=== PATIENT | male | born 1940 | race African-American/Black ===

== ENCOUNTER 2017-06-01 00:57 | Emergency (ER) | payer OTHER, BC ==
[~2017-06-01] VITALS: Ht 167.6 cm; Wt 81.2 kg
--- NOTE | ~2017-06-01 | EKG ---
[place] [id number] [facility] [place] [employer] [address] ELECTROCARDIOGRAM REPORT Name: LORIE RINCON Room #: [facility]#: [id number] Admission: 06/01/17 Attend Phys: Discharge: 06/01/17 Date of : 40 Report #: [id number] THIS REPORT FOR: //name// [facility] ED Test Date: 2017-06-01 Test Time: 01:03:56 Pat Name: LORIE RINCON Department: Room: 170 Gender: M [employer]: MZOOK : 1940 Requested By: Florencia Orona Order Number: [id number] MD: Joaquín Valentino Measurements Intervals [employer] Rate: 65 P: 65 WV: 152 QRS: 158 QRSD: 108 T: 144 QT: 436 QTc: 454 Interpretive Statements Sinus rhythm Abnormal lateral Q waves Anterior infarct, old Abnormal T, consider ischemia, lateral leads Compared to ECG 05/04/2015 07:31:28 No significant change was found Electronically Signed On 06-01-2017 17:21:37 CDT by Joaquín Valentino [email or web address] <ELECTRONICALLY SIGNED> By: Joaquín Valentino MD, [facility] 06/01/17 1721 [id number] Joaquín Valentino MD, [facility] /EPI
[~2017-06-01 00:57] MED LIST: COUMADIN 3 MG TA3 M1 PO; LANTUS SOL100 UNIT/1 SUBQ; LIPITOR 20 MG T20 M1 PO; LISINOPRIL20 MG PO; NOVOLOG FL100 UNIT/M SC; PRINIVIL20 MG PO
[2017-06-01 01:05] VITALS: BP 149/71
[2017-06-01 01:27] LABS: ABSOLUTE NEUTROPHILS 3.6 thou/uL (1.4-8.2); BASOPHILS 1.4 % (0.0-2.0); EOSINOPHILS 5.2 % (0.0-3.0); HEMATOCRIT 39.5 % (42.0-52.0); HEMOGLOBIN 13.5 gm/dL (14.0-18.0); LYMPHOCYTES 23.1 % (24.0-44.0); MCH 30.1 pg (26.0-34.0); MCHC 34.1 g/dL (28.0-37.0); MCV 88.3 fL (80.0-100.0); MONOCYTES 10.1 % (1.0-8.0); PLATELET COUNT 127 thou/uL (150-400); POLYS 60.2 % (36.0-66.0); RBC 4.47 mil/uL (4.50-6.00); RDW 13.6 % (10.5-14.5)
[2017-06-01 01:35] LABS: ANION GAP 11 mmol/L (7-16); BUN 13 mg/dL (7-18); CALCIUM 9.3 mg/dL (8.5-10.1); CHLORIDE 103 mmol/L (98-107); CO2 23 mmol/L (21-32); CREATININE 1.4 mg/dL (0.7-1.3); GLUCOSE 294 mg/dL (74-106); SODIUM 137 mmol/L (136-145)
[2017-06-01 01:44] LABS: TROPONIN-I < 0.04 ng/mL (<0.06)
[2017-06-01] MEDS ORDERED: ASPIRIN325 PO (04:10)
== END 2017-06-01 04:23 | disposition left against medical advice (07) ==
LOC: ER 00:57 → EROBS 03:09 → ER 04:23
PROVIDERS: Emergency Medicine
DX: I63.9 Cerebral infarction, unspecified (principal); E11.9 Type 2 diabetes mellitus without complications; Z87.891 Personal history of nicotine dependence; Z79.4 Long term (current) use of insulin